=== PATIENT | male | born 2000 | race Asian ===

== ENCOUNTER 2023-01-02 18:41 | Emergency (ER) | payer OTHER, SELFPAY ==
[2023-01-02 18:47] VITALS: BP 106/70; PULSE 66; RESP 14; TEMP 36.9; O2SAT 100; BMI 23.5
--- NOTE | 2023-01-02 19:12 | CRLHL7_ITS ---
For Patients: As a result of the Century Cures Act, medical imaging exams and procedure reports are released immediately into your electronic medical record. You may view this report before your referring provider. If you have questions, please contact your health care provider. INDICATION: Right lower quadrant abdominal pain. TECHNIQUE: CT abdomen and pelvis acquired with 74 mL Isovue 370 contrast. COMPARISON: None. FINDINGS: Lower chest: No focal consolidation. Liver: No suspicious focal hepatic lesion. Gallbladder and bile ducts: Unremarkable. Pancreas: Unremarkable. Spleen: Unremarkable. Adrenal glands: Unremarkable. Kidneys: Kidneys enhance symmetrically, without hydronephrosis. Retroperitoneum: No lymphadenopathy. Bowel and mesentery: Mild periappendiceal inflammatory changes, consistent with early acute appendicitis. No evidence of rupture or abscess formation at this time. Bowel is not obstructed. No significant ascites. No pneumoperitoneum. Bladder: Unremarkable for degree of distension. Reproductive organs: No prostatomegaly. Pelvic lymph nodes: No lymphadenopathy. Vessels: Unremarkable. Abdominal wall: No acute abdominal wall abnormality. Bones: No suspicious/aggressive focal osseous lesion. IMPRESSION: Acute uncomplicated appendicitis. Please note that all CT scans at this facility use dose modulation, iterative reconstruction, and/or weight-based dosing when appropriate to reduce radiation dose to as low as reasonably achievable. Dictated by Ilda Franco MD @ 01/02/2023 9:38:26 PM (Electronically Signed)
[2023-01-02 19:58] LABS: Basophils Absolute Auto 0.04 K/uL (0.00-0.30); Basophils Percent Auto 0.4 % (0.0-3.0); Eosinophils Absolute Auto 0.29 K/uL (0.00-0.50); Eosinophils Percent Auto 2.8 % (0.0-7.0); Hematocrit 44.8 % (37.0-53.0); Hemoglobin* 15.5 gm/dL (13.5-17.5); Immature Granulocytes Abs Auto 0.01 K/uL (0.00-0.30); Immature Granulocytes Pct Auto 0.1 %; Lymphocytes Absolute Auto 2.21 K/uL (0.90-2.90); Lymphocytes Percent Auto 21.4 % (20-44); Mean Corpuscular HGB Conc 35 gm/dL (32-36); Mean Corpuscular Hemoglobin 31 pg (26-34); Mean Corpuscular Volume 89 fL (80-100); Monocytes Percent Auto 5.4 % (0.0-11.0); Neutrophils Absolute Auto 7.22 K/uL (1.7-7.0); Neutrophils Percent Auto 69.9 % (42.0-72.0); Platelet Count* 282 K/uL (140-440); RDW Coefficient of Variation % 12.1 % (11.5-15.5); Red Blood Count 5.03 m/uL (4.30-5.90); White Blood Count* 10.33 K/uL (4.50-11.00)
[2023-01-02 20:00] LABS: Slide Review Reflex No
[2023-01-02] MEDS: MORPHINE 4 MG/ML INJ IVP (20:00)
[2023-01-02 20:05] VITALS: PULSE 70; O2SAT 97
[2023-01-02 20:06] VITALS: BP 123/75; PULSE 70; O2SAT 95
[2023-01-02 20:09] LABS: Chloride* 102 mmol/L (96-114); Sodium* 140 mmol/L (135-149)
[2023-01-02 20:10] LABS: Potassium* 3.8 mmol/L (3.6-5.1)
[2023-01-02 20:12] LABS: Alkaline Phosphatase* 98 U/L (40-150); Anion Gap 15 mEq/L (7-15); Aspartate Amino Transferase* 23 U/L (12-35); Bilirubin Total* 0.6 mg/dL (0.1-1.5); Blood Urea Nitrogen* 13 mg/dL (5-24); Carbon Dioxide* 23 mmol/L (20-32); Creatinine* 0.8 mg/dL (0.5-1.5); Est. Creatinine Clearance* 136.56; Estimated Glomerular Filt Rate 129 ml/min
[2023-01-02 20:13] LABS: Alanine Aminotransferase* 19 U/L (4-50); Calcium* 10.1 mg/dL (8.4-10.6); Glucose* 92 mg/dL (60-115); Lipase* 58 U/L (23-300)
--- NOTE | 2023-01-02 20:21 | ED_ITS ---
HPI - General Adult General Date Seen: 01/02/23 Chief complaint: Abdominal Pain Stated complaint: Lower abdominal pain, needs CT Time Seen by Provider: 01/02/23 18:47 Source: patient Mode of arrival: ambulatory Limitations: no limitations History of Present Illness HPI narrative: Patient is a 22-year-old male presenting emergency department for right lower quadrant abdominal pain. He states starting yesterday the pain started in his periumbilical region and has since radiated down the right lower quadrant. He has never had pain like this before. No nausea or vomiting. Has not taken anything for the pain. He went to urgent care and was told to come to emergency department for further was concerned he had appendicitis. Has not had any fevers. Denies any other abdominal surgeries. Has been eating and drinking without issue. Today his last meal was 11:40. Denies chest pain, shortness of breath, diarrhea, constipation, dysuria. Related Data Home Medications Medication Instructions Recorded Confirmed fluoxetine 40 mg capsule (Prozac) 40 mg PO DAILY 01/02/23 01/02/23 Previous Rx's Medication Instructions Recorded amoxicillin 875 mg-potassium 1 tab PO BID #14 tabs 01/02/23 clavulanate 125 mg tablet Allergies Allergy/AdvReac Type Severity Reaction Status Date / Time No Known Drug Allergies Allergy Verified 01/02/23 18:47 Review of Systems Status of ROS: Reports: 10 or more systems reviewed and unremarkable except as noted in History and below Exam Narrative: Exam Narrative: Const: Well-nourished, Well-developed, in mild distress Eyes: PERRL, no conjunctival injection, and symmetrical lids HENT: Atraumatic external nose and ears. Moist mucous membranes. Neck: Symmetric, trachea midline, No thyromegaly. CVS: RRR, No murmurs or gallops. Peripheral pulses 2+ and equal in all extremities RESP: Unlabored respiratory effort. Clear to auscultation bilaterally. GI: Right lower quadrant tenderness, positive McBurney's point. Nondistended, No rebound or guarding. MSK:Extremities w/o deformity, Normal Active ROM Skin: Warm, Dry. No rashes or lesions. Neuro: Normal Muscle tone, No focal neurological deficits. Psych: Awake, Alert, & Oriented x3. Appropriate mood and affect. Const: Vital Signs, click to edit/add: Vital Signs - 24 hr 01/02/23 18:47 Temperature 98.5 F Pulse Rate [Pulse Oximeter] 66 Respiratory Rate 14 Blood Pressure [Ri ght Upper Arm] 106/70 Pulse Oximetry 100 Oxygen Delivery Me thod Room Air Course Vital Signs Vital signs: Initial Vital Signs Temperature 98.5 F 01/02/23 18:47 Temperature Source Temporal Artery Scan 01/02/23 18:47 Pulse Rate 66 01/02/23 18:47 Respiratory Rate 14 01/02/23 18:47 Blood Pressure 106/70 01/02/23 18:47 Blood Pressure Mean 82 01/02/23 18:47 Blood Pressure Position Sitting 01/02/23 18:47 Pulse Oximetry 100 01/02/23 18:47 Oxygen Delivery Method Room Air 01/02/23 18:47 Vital Signs Temperature 98.5 F 01/02/23 18:47 Pulse Rate 66 01/02/23 18:47 Respiratory Rate 14 01/02/23 18:47 Blood Pressure 106/70 01/02/23 18:47 Pulse Oximetry 100 01/02/23 18:47 Oxygen Delivery Method Room Air 01/02/23 18:47 Temperature 98.5 F 01/02/23 18:47 Pulse Rate 66 01/02/23 18:47 Respiratory Rate 14 01/02/23 18:47 Blood Pressure 106/70 01/02/23 18:47 Pulse Oximetry 100 01/02/23 18:47 Oxygen Delivery Method Room Air 01/02/23 18:47 Medical Decision Making MDM Narrative Medical decision making narrative: Patient is a 22-year-old male presenting for right lower quadrant abdominal pain. Yesterday the pain started in the periumbilical region is since moved to the right lower quadrant. He is tender at McBurney's point. He has had no previous abdominal surgeries. He has not eaten now since 11:40. No other abdominal pain noted. There is concern for appendicitis at this time. He is not have any urinary tract symptoms of cystitis seems unlikely. No right upper quadrant tenderness. He has had no previous abdominal surgeries and has had normal bowel movements in the [facility] is unlikely. CBC, CMP, lipase all ordered. Morphine given for pain. Cbc and CMP showed no concerning abnormalities. Patient's pain improved with morphine. I reviewed the CT myself and it appears to be appendicitis. Do not h ave the official read yet. I did speak to Dr. Sanders and she is aware. She will review the images herself. Of tissue reviewed the images she states since there is no apendolith blocking the appendix seen he does not have a white count she believes he could be a candidate for outpatient treatment. Patient was given option for antibiotics versus surgical removal and he states he would like to try the antibiotics. He was given strict strict return precautions. He will be started on Augmentin b.i.d.. He is agreeable to this plan. Lab Data Labs: Lab Results 01/02/23 Range/Units 19:45 WBC 10.33 (4.50-11.00) K/uL RBC 5.03 (4.30-5.90) m/uL Hgb 15.5 (13.5-17.5) gm/dL Hct 44.8 (37.0-53.0) % MCV 89 (80-100) fL MCH 31 (26-34) pg MCHC 35 (32-36) gm/dL RDW Coeff of Zulema 12.1 (11.5-15.5) % Plt Count 282 (140-440) K/uL Neut % (Auto) 69.9 (42.0-72.0) % Lymph % (Auto) 21.4 (20-44) % [place] % (Auto) 5.4 (0.0-11.0) % Eos % (Auto) 2.8 (0.0-7.0) % Baso % (Auto) 0.4 (0.0-3.0) % Neut # (Auto) 7.22 H (1.7-7.0) K/uL Lymph # (Auto) 2.21 (0.90-2.90) K/uL [place] # (Auto) 0.60 (0.00-0.90) K/UL Eos # (Auto) 0.29 (0.00-0.50) K/uL Baso # (Auto) 0.04 (0.00-0.30) K/uL Abs Immat Gran (auto) 0.01 (0.00-0.30) K/uL Imm/Tot Granulo (auto) 0.1 % Sodium 140 (135-149) mmol/L Potassium 3.8 (3.6-5.1) mmol/L Chloride 102 (96-114) mmol/L Carbon Dioxide 23 (20-32) mmol/L Anion Gap 15 (7-15) mEq/L BUN 13 (5-24) mg/dL Creatinine 0.8 (0.5-1.5) mg/dL Estimated Creat Clear 136.56 Estimated GFR 129 ml/min Glucose 92 (60-115) mg/dL Calcium 10.1 (8.4-10.6) mg/dL Total Bilirubin 0.6 (0.1-1.5) mg/dL AST 23 (12-35) U/L ALT 19 (4-50) U/L Alkaline Phosphatase 98 (40-150) U/L Total Protein 8.0 (6.0-8.3) g/dL Albumin 5.0 (3.3-5.0) g/dL Lipase 58 (23-300) U/L Discharge Plan Discharge Clinical Impression: Acute appendicitis Patient Disposition: Home, Self-Care Condition: Stable Instructions: Laparoscopic Appendectomy (DC) Additional Instructions: Follow-up in the next 2-3 days with primary care. He will be started on Augment in. Make sure you take it twice a day for the next 7 days. And 2 or 3 days that the pain is persistent or is worsening please return to the emergency department immediately. Prescriptions: New amoxicillin-pot clavulanate 875-125 mg tablet 1 tab PO BID Qty: 14 0RF No Action fluoxetine [Prozac] 40 mg capsule 40 mg PO DAILY Follow Up/Referrals: Provider,Not a Local [Primary Care Provider] - Stand Alone Forms: [employer] Info Instructions
[2023-01-02] MEDS: AMOXICILLIN/CLAVULANATE 875 mg/125 mg TABLET PO (21:43)
== END 2023-01-02 22:40 | disposition home or self-care (01) ==
PROVIDERS: Emergency Provider Student in an Organized Health Care Education/Training Program
DX: K35.80 Unspecified acute appendicitis (principal)
CPT/HCPCS: 36415; 74177; 80053; 83690; 85025; 96374; 99283; 99284; A9270; J2270; Q9967